=== PATIENT | female | born 1950 | race Caucasian/White ===

== ENCOUNTER 2024-11-07 13:46 | Emergency (ER) | payer MEDICARE, BC ==
[2024-11-07] MEDS: Take Home: Cefuroxime 250 MG Tab, 2 Tab Pack PO ONE (14:46)
[2024-11-07] MEDS: Cefuroxime 250 MG Tab PO STA (14:46)
[2024-11-07 15:40] VITALS: BP 107/72; PULSE 63
== END 2024-11-07 14:54 | disposition home or self-care (01) ==
LOC: VM.ED 13:46
DX: H66.002 Acute suppurative otitis media without spontaneous rupture of ear drum, left ear (principal); E78.00 Pure hypercholesterolemia, unspecified; E66.9 Obesity, unspecified; E03.9 Hypothyroidism, unspecified; Z88.2 Allergy status to sulfonamides; Z88.8 Allergy status to other drugs, medicaments and biological substances; Z79.84 Long term (current) use of oral hypoglycemic drugs; Z79.890 Hormone replacement therapy; Z79.899 Other long term (current) drug therapy; Z90.49 Acquired absence of other specified parts of digestive tract; Z68.37 Body mass index [BMI] 37.0-37.9, adult
CPT/HCPCS: 99282; 99283; A9270-GY